=== PATIENT | male | born 1990 | race Caucasian/White ===

== ENCOUNTER 2023-12-04 03:31 | Emergency (ER) | payer OTHER ==
[~2023-12-04] VITALS: Ht 185.4 cm; Wt 84.0 kg
[2023-12-04] MEDS: diazePAM 10 MG TAB PO ONE (06:54)
[2023-12-04 08:24] VITALS: BP 123/76; TEMP 97.8; O2SAT 98
== END 2023-12-04 08:26 | disposition home or self-care (01) ==
LOC: M ED 03:31
DX: T18.5XXA Foreign body in anus and rectum, initial encounter (principal); Y92.013 Bedroom of single-family (private) house as the place of occurrence of the external cause

== ENCOUNTER → 2024-01-20 | Outpatient (REF) | payer OTHER ==
[2024-01-20 14:37] LABS: SEMEN APPEARANCE OPAQUE (OPAQUE); SEMEN VISCOSITY VISCOUS (LIQUID); SEMEN VOLUME 1.4 ML (2.0-5.0); SEMEN WBC >1 M/ml (<=1 M/ml)
== END ==
LOC: M LAB REF 13:57
PROVIDERS: ATTEND Physician Assistant
DX: Z31.41 Encounter for fertility testing (principal)

== ENCOUNTER 2024-06-07 17:45 | Emergency (ER) | payer OTHER ==
[~2024-06-07] VITALS: Ht 185.4 cm; Wt 82.0 kg
[2024-06-07 20:33] VITALS: BP 119/78; TEMP 97; O2SAT 100
== END 2024-06-07 20:44 | disposition left against medical advice (07) ==
LOC: M ED 17:45
DX: Z53.21 Procedure and treatment not carried out due to patient leaving prior to being seen by health care provider (principal)

== ENCOUNTER 2024-06-11 13:45 | Emergency (ER) | payer OTHER ==
[~2024-06-11] VITALS: Ht 185.4 cm; Wt 82.7 kg
[2024-06-11] MEDS ORDERED: MUPI2OI TOP (18:34)
[2024-06-11 18:39] VITALS: BP 115/76; TEMP 97.5; O2SAT 97
== END 2024-06-11 18:47 | disposition home or self-care (01) ==
LOC: M ED 13:45
DX: L02.223 Furuncle of chest wall (principal); Z79.899 Other long term (current) drug therapy